=== PATIENT | female | born 1950 | race Caucasian/White ===

== ENCOUNTER → 2016-03-26 | Day surgery (SDC) | payer BC ==
[2016-03-22 08:05] VITALS: Ht 165.1 cm; Wt 142.7 kg
[~2016-03-26] VITALS: Ht 165.1 cm; Wt 142.7 kg
[~2016-03-26] MED LIST: ALBUT/IPRATROP 3MG/0.5MG NEB 3 ML VIAL INH ONE; CAND16TA PO; COEN90TA PO; FLUT1AER5 INH; LACT10CA3 PO; LEVO175T PO; LIDOCAINE HCL 2% 2 ML VIAL (20MG/ML) ONE; METOPROLOL TARTRATE 1 MG/ML VIAL ONE; MISCTAB30 PO; MULT-188 PO; MULTTAB PO; OMEP40CA PO; ONDANSETRON INJ 2 MG/ML 2 ML VIAL IV PRN; PROAIR INH; PROPOFOL IV EMULSION 10 MG/ML 20 ML VIAL IV ONE; SIMV40TA2 PO
--- NOTE | 2016-03-26 08:34 | Endo History and Physical ---
History & Physical Date of Service: Mar 26, 2016. Chief Complaint: Esophagitis Referring Physician: Shara Heller History of Present Illness Patient with a history of a hiatal hernia and esophageal ring presenting for evaluation of recurrent dysphagia and a history of esophagitis. Past Medical History Arthritis, Asthma, Cancer, High Cholesterol, Hypertension, Thyroid Disease Past Surgical History Hx Cardiac Surgery: No Hx Internal Defibrillator: No Hx Pacemaker: No Hx Abdominal Surgery: Yes (OPEN APPY) Hx of Implantable Prosthesis: No Hx Post-Op Nausea and Vomiting: No Hx Cancer Surgery: Yes (BCC REMOVAL FROM FACE) Hx Thoracic Surgery: No Hx Orthopedic: No Hx Urinary Tract Surgery: No Family History Polyp Social History Smoking Status: Never Smoker Hx Substance Use: No Hx Alcohol Use: No Allergies Coded Allergies: Sulfa Antibiotics (Verified Allergy, Intermediate, RASH, 03/22/16) NIKOLAY Inhibitors (Verified Allergy, Unknown, COUGH, 03/22/16) Current Medications Reported Home Medications Medications Dose Route/Sig Max Daily Dose Days Date Category Culturelle (Lactobacillus-Inulin) 1 Cap Cap 1 Tab PO QAM 03/22/16 Reported [Proair] 2 Puffs INH Q4H PRN 03/22/16 Reported Atacand Hct 16MG/12.5MG (Candesartan Cilexetil-Hydrochl) 1 Tab Tab 1 Tab PO QAM 03/22/16 Reported Co Q10 (Coenzyme Q10) 90 Mg Tab 1 Tab PO QAM 09/12/15 Reported Prilosec (Omeprazole) 40 Mg Capcr 40 Mg PO QAM 09/12/15 Reported Ocuvite (Multiple Vitamins W/ Minerals) 1 Tab Tab 1 Tab PO QAM 01/19/15 Reported Flovent Diskus (Fluticasone Propionate (Inhala) 100 Mcg/Blist Aer 2 Puffs INH BID 01/19/15 Reported Mvi With Minerals (Multivitamins/Minerals) Tab 1 Tab PO QAM 08/03/14 Reported Osteo Bi-Flex Joint Shiel (Misc Natural Products) 1 Tab Tab 1 Tab PO QAM 08/03/14 Reported Synthroid (Levothyroxine Sodium) 175 Mcg Tab 175 Mcg PO QAM 08/03/14 Reported Zocor (Simvastatin) 40 Mg Tab 40 Mg PO QPM 08/03/14 Reported Vital Signs Weight (Kilograms): 142.73 Height (Feet): 5 Height (Inches): 5 Date Time Temp Pulse Resp B/P Pulse Ox O2 Delivery O2 Flow Rate FiO2 03/26/16 08:04 36.7 80 20 168/84 96 Room Air Physical Exam General Appearance: no apparent distress Respiratory/Chest: Auscultation: no wheezing, deminished air movement Cardiovascular: Heart Auscultation: II/ JAVIER Abdomen: Inspection & Palpation: soft Assessment and Plan EGD today for evaluation of mild esophagitis and dysphagia. I have discussed the risks to include bleeding, infection, perforation, pain, aspiration, and need for follow-up studies. Plan EGD today
--- NOTE | 2016-03-26 08:53 | Discharge Instructions ---
Endoscopy Patient Instructions Date / Procedure(s) Performed Mar 26, 2016. EGD Allergy Information Coded Allergies: Sulfa Antibiotics (Verified Allergy, Intermediate, RASH, 03/22/16) NIKOLAY Inhibitors (Verified Allergy, Unknown, COUGH, 03/22/16) Discharge Date / Findings Mar 26, 2016. mild gastritis esophageal ring Medication Instructions Restart Stopped Medication(s): Reported Home Medications Medications Dose Route/Sig Max Daily Dose Days Date Category Culturelle (Lactobacillus-Inulin) 1 Cap Cap 1 Tab PO QAM 03/22/16 Reported [Proair] 2 Puffs INH Q4H PRN 03/22/16 Reported Atacand Hct 16MG/12.5MG (Candesartan Cilexetil-Hydrochl) 1 Tab Tab 1 Tab PO QAM 03/22/16 Reported Co Q10 (Coenzyme Q10) 90 Mg Tab 1 Tab PO QAM 09/12/15 Reported Prilosec (Omeprazole) 40 Mg Capcr 40 Mg PO QAM 09/12/15 Reported Ocuvite (Multiple Vitamins W/ Minerals) 1 Tab Tab 1 Tab PO QAM 01/19/15 Reported Flovent Diskus (Fluticasone Propionate (Inhala) 100 Mcg/Blist Aer 2 Puffs INH BID 01/19/15 Reported Mvi With Minerals (Multivitamins/Minerals) Tab 1 Tab PO QAM 08/03/14 Reported Osteo Bi-Flex Joint Shiel (Misc Natural Products) 1 Tab Tab 1 Tab PO QAM 08/03/14 Reported Synthroid (Levothyroxine Sodium) 175 Mcg Tab 175 Mcg PO QAM 08/03/14 Reported Zocor (Simvastatin) 40 Mg Tab 40 Mg PO QPM 08/03/14 Reported Provider Instructions Activity Restrictions - No exercising or heavy lifting for 24 hours. - Do not drink alcohol the day of the procedure. - Do not drive a car or operate machinery until the day after the procedure. - Do not make any important decisions or sign important papers in 24 hours after the procedure. Following Day: - Return to full activity which may include returning to work/school. Diet Start your diet with liquids and light foods (jello, soup, juice, toast). Then eat your usual diet if not nauseated. Treatment For Common After Affects For mild abdominal pain, bloating, or excessive gas: - Rest - Eat lightly - Lie on right side Follow-Up Information Follow-up with Shara Heller as scheduled No evidence of Barretts Esophagus Continue present medications Anesthesia Information What You Should Know You have had a procedure that required some medicine to reduce anxiety and discomfort. This treatment is called moderate sedation. After receiving the treatment, you may be sleepy, but you will be able to breathe on your own. The effects of the treatment may last for several hours. Follow these instructions along with Activity/Diet recommendations noted above: * Do NOT do anything where dizziness or clumsiness would be dangerous. * Rest quietly at home today, then you can be up and about tomorrow. * Have a responsible person stay with you the rest of today. * You may have had an I.V. today. If so, you may take the dressing off later today. Recommendations Call your doctor if: * Trouble breathing * Continuous vomiting for more than 24 hours * Temperature above 101 degrees * Severe abdominal pain or bloating * Pain not relieved by pain medicine ordered * There is increased drainage or redness from any incision * A large amount of rectal bleeding greater than 2-3 tablespoons. (If you had a polyp/s removed or have hemorrhoids, a small amount of blood - from the rectum is to be expected.) * You have any unanswered questions or concerns. IN THE EVENT OF A SERIOUS EMERGENCY, GO TO THE NEAREST EMERGENCY ROOM Your discharge instructions were prepared by provider Samantha Rizzo. Patient Instructions Signature Page Irina Carrero Patient (or Guardian) Signature/Date: I have read and understand the instructions given to me by my caregivers. Caregiver/RN/Doctor Signature/Date: The above-named patient and/or guardian has received patient instructions on this date. + Original Patient Signature Page (only) stays with chart. Please make copy for patient.
--- NOTE | 2016-03-26 08:58 | GI REPORT ---
Procedure Date: 03/26/2016 8:35 AM Procedure: Upper GI endoscopy Indications: Dysphagia Medicines: Monitored Anesthesia Care Complications: No immediate complications. Estimated blood loss: Minimal. Estimated Blood Loss: Estimated blood loss was minimal. Procedure: Pre-Anesthesia Assessment: - Prior to the procedure, a History and Physical was performed, and patient medications, allergies and sensitivities were reviewed. The patient's tolerance of previous anesthesia was reviewed. - The risks and benefits of the procedure and the sedation options and risks were discussed with the patient. All questions were answered and informed consent was obtained. - Patient identification and proposed procedure were verified prior to the procedure by the physician, the nurse and the quality checker. The procedure was verified in the procedure room. - Pre-procedure physical examination revealed no contraindications to sedation. - ASA Grade Assessment: III - A patient with severe systemic disease. - After reviewing the risks and benefits, the patient was deemed in satisfactory condition to undergo the procedure. - The anesthesia plan was to use general anesthesia. - Immediately prior to administration of medications, the patient was re-assessed for adequacy to receive sedatives. - The heart rate, respiratory rate, oxygen saturations, blood pressure, adequacy of pulmonary ventilation, and response to care were monitored throughout the procedure. - The physical status of the patient was re-assessed after the procedure. After obtaining informed consent, the endoscope was passed under direct vision. Throughout the procedure, the patient's blood pressure, pulse, and oxygen saturations were monitored continuously. The scope was introduced through the mouth, and advanced to the second part of duodenum. The upper GI endoscopy was accomplished without difficulty. The patient tolerated the procedure well. Findings: The upper third of the esophagus, middle third of the esophagus and lower third of the esophagus were normal. A mild Schatzki ring (acquired) was found at the gastroesophageal junction. A guidewire was placed and the scope was withdrawn. Dilation was performed with a Savary dilator with mild resistance at 51 Fr. The endoscope was then reinserted to evaluate the success of the procedure. Estimated blood loss was minimal. Diffuse mild inflammation characterized by erythema and granularity was found in the entire examined stomach. This was biopsied on a prior examination. The examined duodenum was normal. Impression: - Mild Schatzki ring. Dilated to 51 Fr today. - diffuse gastritis. Previously biopsied. - Normal examined duodenum. Recommendation: - Discharge patient to home (ambulatory). - Advance diet as tolerated today. - Continue present medications. - Repeat the upper endoscopy PRN for retreatment. - Return to GI office PRN. Samantha Rizzo D.O. Samantha Rizzo, DO 03/26/2016 8:56:57 AM This report has been signed electronically. Note Initiated On: 03/26/2016 8:35 AM
[2016-03-26 09:25] VITALS: PULSE 77; O2SAT 97
[2016-03-26 09:33] VITALS: BP 131/77; PULSE 84; O2SAT 96
--- NOTE | 2016-03-26 09:53 | Anesthesiology Progress Note ---
Anesthesia Post Op Note Date & Time Mar 26, 2016 at 09:53 Vital Signs Pain Intensity: 0 Vital Signs Past 12 Hours Date Time Temp Pulse Resp B/P Pulse Ox O2 Delivery O2 Flow Rate FiO2 03/26/16 09:33 84 20 131/77 96 Room Air 03/26/16 09:25 77 20 97 Room Air 03/26/16 09:18 79 20 140/84 100 Room Air 03/26/16 09:03 89 20 152/89 96 Room Air 03/26/16 08:04 36.7 80 20 168/84 96 Room Air Notes Mental Status: alert / awake / arousable, participated in evaluation Pt Amnestic to Procedure: Yes Nausea / Vomiting: adequately controlled Pain: adequately controlled Airway Patency, RR, SpO2: stable & adequate BP & HR: stable & adequate Hydration State: stable & adequate Anesthetic Complications: no major complications apparent
== END | disposition home or self-care (01) ==
LOC: C.GI 07:42
PROVIDERS: ATTEND Internal Medicine Gastroenterology
DX: K22.2 Esophageal obstruction (principal); K20.9 Esophagitis, unspecified; K29.70 Gastritis, unspecified, without bleeding; R13.10 Dysphagia, unspecified; Z83.71 Family history of colonic polyps; E78.00 Pure hypercholesterolemia, unspecified; I10 Essential (primary) hypertension; J45.909 Unspecified asthma, uncomplicated; Z79.899 Other long term (current) drug therapy

== ENCOUNTER → 2016-06-05 | Outpatient (CLI) | payer BC ==
[~2016-06-05] MED LIST changes: -ALBUT/IPRATROP 3MG/0.5MG NEB 3 ML VIAL INH ONE; -LIDOCAINE HCL 2% 2 ML VIAL (20MG/ML) ONE; -METOPROLOL TARTRATE 1 MG/ML VIAL ONE; -ONDANSETRON INJ 2 MG/ML 2 ML VIAL IV PRN; -PROPOFOL IV EMULSION 10 MG/ML 20 ML VIAL IV ONE
--- NOTE | 2016-06-05 16:40 | MAMMOGRAPHY REPORT ---
BILATERAL DIGITAL SCREENING MAMMOGRAM WITH CAD: 06/05/2016 CLINICAL HISTORY: Routine screening. Patient has no complaints. TECHNIQUE: Bilateral CC and MLO views of the breasts with tiled views to include all tissue were ob tained. Current study was also evaluated with a Computer Aided Detection (CAD) system. COMPARISON: Comparison is made to exams dated: 06/03/2015 mammogram, 06/02/2014 mammogram, 06/01/2013 ma mmogram, 05/28/2012 mammogram, 04/18/2011 mammogram, and 04/04/2010 mammogram - [facility] nter. BREAST COMPOSITION: The tissue of both breasts is almost entirely fatty. FINDINGS: There are benign rim calcifications scattered in the breast. An asymmetry in the anterior right breast along the posterior nipple line on the CC view is stable compared to prior mammograms. No suspicious mass, architectural distortion or cluster of microcalcifications is seen. IMPRESSION: ACR BI-RADS CATEGORY 1: NEGATIVE There is no mammographic evidence of malignancy. A 1 year screening mammogram is recommended. The p atient will receive written notification of the results. Approximately 10% of breast cancers are not detected with mammography. A negative mammographic repor t should not delay biopsy if a clinically suggestive mass is present. Kylee Whittaker M.D. ay/:06/05/2016 15:53:56 Pre Press Operator: Justyna THOMAS(Rosi)([place]), [facility] letter sent: Normal 1/2 BI-RADS Code: ACR BI-RADS Category 1: Negative
== END | disposition home or self-care (01) ==
LOC: C.MAMM 10:32
PROVIDERS: ATTEND Family Medicine
DX: Z12.31 Encounter for screening mammogram for malignant neoplasm of breast (principal)

== ENCOUNTER → 2017-06-06 | Outpatient (CLI) | payer BC ==
--- NOTE | 2017-06-06 14:43 | MAMMOGRAPHY REPORT ---
BILATERAL DIGITAL SCREENING MAMMOGRAM TOMOSYNTHESIS WITH CAD: 06/06/2017 CLINICAL HISTORY: Routine screening. TECHNIQUE: Breast tomosynthesis in addition to standard 2D mammography was performed. Current study was also evaluated with a Computer Aided Detection (CAD) system. COMPARISON: Comparison is made to exams dated: 06/05/2016 mammogram, 06/03/2015 mammogram, 06/02/2014 mamm ogram, 06/01/2013 mammogram, 05/28/2012 mammogram, and 04/18/2011 mammogram - [facility] er. BREAST COMPOSITION: The tissue of both breasts is almost entirely fatty. FINDINGS: No suspicious masses, calcifications, or areas of architectural distortion are noted in ei ther breast. There has been no significant interval change compared to prior exams. Scattered bilate ral benign-appearing calcifications are again noted. IMPRESSION: ACR BI-RADS CATEGORY 2: BENIGN There is no mammographic evidence of malignancy. A 1 year screening mammogram is recommended. The pa tient will receive written notification of the results. Approximately 10% of breast cancers are not detected with mammography. A negative mammographic report should not delay biopsy if a clinically suggestive mass is present. Miryam Parrish M.D. ah/:06/06/2017 11:21:45 Director Of Primary: Moe THOMAS(R)(M), [facility] letter sent: Normal 1/2 BI-RADS Code: ACR BI-RADS Category 2: Benign
== END | disposition home or self-care (01) ==
LOC: C.MAMM 10:32
PROVIDERS: ATTEND Family Medicine
DX: Z12.31 Encounter for screening mammogram for malignant neoplasm of breast (principal)

== ENCOUNTER → 2017-07-18 | Outpatient (CLI) | payer BC | END | disposition home or self-care (01) | LOC: C.LAB1850 09:02 | PROVIDERS: ATTEND Internal Medicine Nephrology | DX: I10 Essential (primary) hypertension (principal) ==

== ENCOUNTER → 2017-09-19 | Outpatient (CLI) | payer BC ==
[~2017-09-19] MED LIST changes: -CAND16TA PO; +CAND32TA2 PO; -COEN90TA PO; +ERGO500011 PO; +OMEP-334 PO; -OMEP40CA PO; +SLWMEC PO
[2017-09-19 17:37] LABS: CALCIUM 9.4 mg/dl (8.5-10.1)
--- NOTE | 2017-10-09 08:20 | CODING QUERY NO DIAGNOSIS ---
TREATMENT RENDERED WITHOUT A DIAGNOSIS Dr. Hearn, To promote full compliance with coding requirements relating to patient care, physician participation is requested in all cases of jump roll operator uncertainty. Please assist us with providing a diagnosis/symptom for the test(s) below: A diagnosis/symptom was not documented on your Order. A valid diagnosis/symptom is required to bill all insurances. Please remember that we are unable to code a diagnosis of rule out, probable, possible, questionable, or suspected. Tests that require a diagnosis: * SERUM CALCIUM DIAGNOSIS: * MAGNESIUM DIAGNOSIS: * PARATHYROID HORMONE, INTACT DIAGNOSIS: DATE OF SERVICE: 09/19/17 Provider Signature: Date: Thank you Jalil Cloeman [facility] Information Management Once completed, please kindly fax back to [phone] For questions please call [phone]
== END | disposition home or self-care (01) ==
LOC: C.LABPVFM 14:51
PROVIDERS: ATTEND Internal Medicine Endocrinology, Diabetes & Metabolism
DX: E21.0 Primary hyperparathyroidism (principal)

== ENCOUNTER → 2017-10-07 | Outpatient (CLI) | payer BC | END | disposition home or self-care (01) | LOC: C.MAMM 10:01 | PROVIDERS: ATTEND Internal Medicine Endocrinology, Diabetes & Metabolism | DX: E03.9 Hypothyroidism, unspecified (principal); E21.0 Primary hyperparathyroidism ==